=== PATIENT | female | born 1990 | race African-American/Black ===

== ENCOUNTER 2019-10-30 06:59 | Emergency (ER) | payer OTHER, SELFPAY ==
[2019-10-30 07:14] VITALS: BP 128/85; PULSE 107; RESP 16; TEMP 37.1; O2SAT 99; BMI 40.7
--- NOTE | 2019-10-30 07:20 | CT_ITS ---
PROCEDURE: CT ABDOMEN PELVIS W CON CLINICAL INDICATION: abd pain Periumbilical pain COMPARISON: No exams were available for comparison TECHNIQUE: IV Contrast: 75ML OPTIRAY 350 Oral Contrast None Axial images obtained with sagittal and coronal reformats. All CT scans at the facility use one or more dose reduction, viz: automated exposure control, ma/kV adjustment per patient size (including targeted exams where dose is matched to indication, i.e. head), or iterative reconstruction technique. FINDINGS: LOWER THORAX: There are atelectatic changes in the left lower lobe ABDOMEN & PELVIS: Status post cholecystectomy. The liver, spleen, adrenal glands, pancreas, and kidneys have an unremarkable appearance. No renal or ureteral calculi. No evidence of appendicitis. There are few small mesenteric and right lower quadrant lymph nodes which are nonspecific. Diverticulosis present involving the sigmoid colon. No evidence of diverticulitis. No pelvic mass or abnormal fluid collection. No acute bony anomaly. IMPRESSION: No acute finding Dictated by: Wilmer Azevedo MD 10/30/2019 09:09 Wilmer Azevedo MD in [facility] 10/30/2019 09:09
[2019-10-30 07:33] LABS: Microscopic, Urine URINE MICROSCOPIC (MICROSCOPIC)
[2019-10-30 07:35] LABS: Appearance,Urine CLEAR (Clear); Bilirubin,Urine Negative (Negative); Blood, Urine 1+ (Negative); Color,Urine YELLOW (Yellow); Glucose,Urine (UA) Negative (Negative); Ketones,Urine Negative (Negative); Leukocyte Esterase,Urine Negative (Negative); Nitrate,Urine Negative (Negative); Protein,Urine Negative (Negative); Specific Gravity, Urine 1.015 (1.005-1.030); Urobilinogen,Urine 0.2 EU/dl (0.2)
[2019-10-30 07:38] LABS: Basophils % 0.3 % (0.1-2.0); Eosinophils # 0.3 K/mm3 (0.0-0.4); Eosinophils % 2.5 % (0.1-12.0); Hematocrit 33.9 % (37.0-47.0); Lymphocytes % 21.8 % (10-50); Mean Corpuscular HGB Conc 32.4 g/dL (31.8-35.4); Mean Corpuscular Volume 80.1 fl (81-99); Mean Platelet Volume 7.1 fl (7.4-10.4); Monocytes # 0.3 K/mm3 (0.1-1.0); Monocytes % 2.2 % (1.7-9.3); Neutrophils # 10.1 K/mm3 (1.8-7.8); Neutrophils % 73.2 % (37.0-80.0); Platelet Count 422 K/mm3 (142-424); Red Blood Count 4.23 M/mm3 (4.20-5.40); Red Cell Distribution Width 15.1 % (11.5-17.5); White Blood Count 13.8 K/mm3 (4.8-10.8)
[2019-10-30 07:41] LABS: Chloride 104 mmol/L (98-107); Sodium 139 mmol/L (136-145)
[2019-10-30 07:41] LABS: Urine Pregnancy, HCG Qual. Negative (Negative)
[2019-10-30 07:42] LABS: Potassium 3.7 mmoL/L (3.5-5.1)
[2019-10-30 07:44] LABS: Alanine Aminotransferase 17 U/L (12-78); Amylase 84 U/L (30-110); Anion Gap 12.7 mEq/L (5-15); Aspartate Amino Transferase 22 U/L (14-36); Blood Urea Nitrogen 6 mg/dl (7-17); Carbon Dioxide 26 mmol/L (22.0-30.0); Creatinine Clearance Estimated 234 mL/min (50-200); Estimated Glomerular Filt Rate 121 ml/min (>60); GFR (African American) 146 ML/MIN (>60)
[2019-10-30 07:45] LABS: Alkaline Phosphatase 112 U/L (38-126); Bilirubin,Total 0.3 mg/dl (0.2-1.3); Calcium 9.6 mg/dl (8.4-10.2); Globulin 4.1 g/dL (1.3-3.2); Glucose 116 mg/dl (74-100); Lipase 69 U/L (23-300); Total Protein,Serum 8.1 g/dl (6.3-8.2)
[2019-10-30 07:53] LABS: Bacteria,Urine Trace /lpf; WBC,Urine Occasional #/hpf (0-3)
[2019-10-30 08:30] VITALS: BP 138/74; PULSE 100
--- NOTE | 2019-10-30 09:10 | [facility].EDABDPAI ---
ED Disposition Clinical Impression: Gastroenteritis Disposition: Home, Self-Care Condition on Discharge: Good Instructions: DI for Acute Abdomen Prescriptions: Dicyclomine HCl [Bentyl 10mg capsule] 20 mg PO QID PRN 10 Days #40 cap PRN Reason: Abdominal Distention Prescription Printed Promethazine HCl 50 mg PO TID 6 Days #20 tab Prescription Printed Referrals: Hernesto Gee [Primary Care Provider] - - Critical Care Critical Care Time: No Attestation: On 10/30/19, the high probability of a clinically significant, sudden or life threatening deterioration of the following system(s) required my full and direct attention, intervention and personal management. The time I documented below is in addition to time spent performing reported procedures but includes the following listed in this critical care notation. Medical Decision Making - Medical Records Medical records reviewed: Yes: I reviewed the patient's medical records. - Sriram Inquiry Pt receiving controlled substance: No Vital Signs: 10/30/19 07:14 10/30/19 08:30 Temperature 98.7 F Temperature Source Oral Pulse Rate [Left Radial] 107 H 100 H Respiratory Rate 16 Blood Pressure [Right Arm] 128/85 138/74 Blood Pressure Mean [Right Arm] 99 95 Blood Pressure Position [Right Arm] Sitting Sitting 02 Sat by Pulse Oximetry 99 Oxygen Delivery Method Room Air - Lab Data Lab results reviewed: Yes: I reviewed the patient's lab results. Lab Results 10/30/19 07:10: Urine Color Yellow, Urine Appearance Clear, Urine pH 6.0, Ur Specific [place] 1.015, Urine Protein Negative, Urine Glucose (UA) Negative, Urine Ketones Negative, Urine Blood 1+, Urine Nitrate Negative, Urine Bilirubin Negative, Urine Urobilinogen 0.2, Ur Leukocyte Esterase Negative, Urine RBC 5-10, Urine WBC Occasional, Ur Squamous Epith Cells 5-10, Urine Bacteria Trace 10/30/19 07:10: Urine HCG, Qual Negative 10/30/19 07:17: WBC 13.8 H, RBC 4.23, Hgb 11.0 L, Hct 33.9 L, MCV 80.1 L, MCH 26.0 L, MCHC 32.4, RDW 15.1, Plt Count 422, MPV 7.1 L, Neut % (Auto) 73.2, Lymph % (Auto) 21.8, [place] % (Auto) 2.2, Eos % (Auto) 2.5, Baso % (Auto) 0.3, Neut # (Auto) 10.1 H, Lymph # (Auto) 3.0, [place] # (Auto) 0.3, Eos # (Auto) 0.3, Baso # (Auto) 0.0 10/30/19 07:17: Sodium 139, Potassium 3.7, Chloride 104, Carbon Dioxide 26, Anion Gap 12.7, BUN 6 L, Creatinine 0.60, Estimated Creat Clear 234, Estimated GFR 121, Est GFR ( Amer) 146, Glucose 116 H, Calcium 9.6, Total Bilirubin 0.3, AST 22, ALT 17, Alkaline Phosphatase 112, Total Protein 8.1, Albumin 4.0, Globulin 4.1 H, Albumin/Globulin Ratio 1.0 L, Amylase 84 10/30/19 07:17: Lipase 69 Result diagrams: 10/30/19 07:17 10/30/19 07:17 Orders (Tests/Meds): ED MEDICATIONS Discontinued Medications Generic Name Dose Route Start Last Admin Trade Name Jess PRN Reason Stop Dose Admin Sodium Chloride 1,000 mls @ 999 mls/hr 10/30/19 07:30 10/30/19 07:24 Sod Chlor 0.9% 1000ml Bag IV 10/30/19 08:30 999 mls/hr .Q1H1M KIZZY Administration Ioversol 75 ml 10/30/19 08:08 10/30/19 08:09 Rad-Optiray 350 100ml Vial IV 10/30/19 08:09 75 ml ONCE ONE Administration Protocol Ketorolac Tromethamine 30 mg 10/30/19 07:22 10/30/19 07:24 Toradol 30mg/Ml Vial IV 10/30/19 07:23 30 mg ONCE ONE Administration Ondansetron HCl 4 mg 10/30/19 07:21 10/30/19 07:24 Zofran 4mg/2ml Vial IV 10/30/19 07:22 4 mg ONCE ONE Administration ORDERS Category Date Time Status CT abdomen pelvis w con Stat Cat Scan 10/30/19 07:20 Taken - CT Data CT Scan: Abdomen, Pelvis Time Received: 09:[address] Reviewed: Yes: I have reviewed the patient's CT results Preliminary Findings: Normal/NAD Abdominal Pain HPI - General Chief Complaint: Abdominal Pain Stated Complaint: abd pain, vomiting Time Seen by Provider: 10/30/19 09:11 Mode of Arrival: Ambulatory Source of Information: Patient Limitations: No Limitations Description of Sym
[2019-10-30 09:34] VITALS: BP 125/74; PULSE 100; RESP 16; TEMP 36.6; O2SAT 98
== END 2019-10-30 09:35 | disposition home or self-care (01) ==
PROVIDERS: Emergency Provider Emergency Medicine; PCP Family Medicine
DX: K52.9 Noninfective gastroenteritis and colitis, unspecified (principal)
CPT/HCPCS: 74177; 80053; 81001; 81025; 82150; 83690; 85025; 96365; 96375; 99283; J2405; Q9967